=== PATIENT | male | born 1975 ===

== ENCOUNTER 2017-11-29 12:26 | Emergency (ER) | payer MEDICAID ==
[2017-11-29 12:26] VITALS: BMI 25.1
[2017-11-29 12:46] VITALS: O2SAT 98
--- NOTE | 2017-11-29 14:02 | C.PDOC ---
History Of Present Illness 42 year old male presents to the ED complaining of right lower leg swelling, increased when compared to left. Symptoms have been on and off for the past 6 months. Minimal in AM, worse in evenings after walking around all day. Live @ home with his Mom. Sleeps horizontally in a bed. No prior history of DVT or prior evaluations for this complaint. No chest pain or shortness of breath. Time Seen by Provider: 11/29/17 13:14 Chief Complaint (Nursing): Lower Extremity Problem/Injury History Per: Patient History/Exam Limitations: no limitations Onset/Duration Of Symptoms: Intermittent Episodes (for 6 months) Current Symptoms Are (Timing): Still Present Past Medical History Reviewed: Historical Data, Nursing Documentation, Vital Signs Vital Signs: Last Vital Signs Temp 98.8 F 11/29/17 12:45 Pulse 78 11/29/17 12:45 Resp 18 11/29/17 12:45 BP 120/79 11/29/17 12:45 Pulse Ox 98 11/29/17 14:06 - Medical History PMH: Anxiety, Hiatal Hernia (left inguinal hernia 6 mos ago) Denies: Chronic Kidney Disease Surgical History: Hernia Repair Family History: States: Unknown Family Hx - Social History Hx Alcohol Use: No Hx Substance Use: No - Immunization History Hx Tetanus Toxoid Vaccination: Yes Hx Influenza Vaccination: Yes Hx Pneumococcal Vaccination: No Review Of Systems Cardiovascular: Negative for: Chest Pain Respiratory: Negative for: Shortness of Breath Musculoskeletal: Positive for: Other (right lower leg swelling) Physical Exam - Physical Exam Appears: Non-toxic, No Acute Distress Skin: Normal Color, Warm, Dry Head: Atraumatic, Normacephalic Eye(s): bilateral: Normal Inspection, PERRL, EOMI Neck: Normal ROM, Supple Chest: Symmetrical Cardiovascular: Rhythm Regular, No Murmur Respiratory: Normal Breath Sounds, No Accessory Muscle Use Extremity: Normal ROM, Calf Tenderness (to the right), Swelling (Right lower extremity with increased size, tenderness, and edema compared to left) Neurological/Psych: Oriented x3, Normal Speech ED Course And Treatment O2 Sat by Pulse Oximetry: 98 (RA) Pulse Ox Interpretation: Normal Medical Decision Making Medical Decision Making: Impression: 42 y/o with lower leg swelling, right > left Time: 13:21 Plan: * Motrin 600 mg PO * Venous Duplex Scan of bilateral lower extremity NEG for DVT's b/l * * suspect venous insuffiency vs adverse effect from some psych meds * Teds Stockings and elevation educated. * NO susp of DVT/PE/CHF Disposition Doctor Will See Patient In The: Office Counseled Patient/Family Regarding: Studies Performed, Diagnosis - Disposition Disposition: HOME/ ROUTINE Disposition Time: 15:55 Condition: GOOD Forms: [facility] (Yi) - Clinical Impression Clinical Impression: Lower extremity edema - Scribe Statement The provider has reviewed the documentation as recorded by the Joanna Pelletier Provider Attestation: All medical record entries made by the Joanna were at my direction and personally dictated by me. I have reviewed the chart and agree that the record accurately reflects my personal performance of the history, physical exam, medical decision making, and the department course for this patient. I have also personally directed, reviewed, and agree with the discharge instructions and disposition.
[2017-11-29 16:15] VITALS: BP 116/70; PULSE 79; RESP 16; TEMP 98.1
--- NOTE | 2017-11-30 09:20 | VASCLAB ---
PROCEDURE: Lower Extremity Venous Duplex Exam. HISTORY: R lower leg swelling, no trauma, ? DVT PRIORS: None. TECHNIQUE: Bilateral common femoral, femoral, popliteal and posterior tibial, peroneal and great saphenous veins were evaluated. Flow was assessed with color Doppler, compressibility, assessment of phasic flow and augmentation response. Report prepared by Anthony Kendall, ZAC, RVT FINDINGS: RIGHT: 1. Common Femoral Vein: 1.1. Compressibility - Fully compressible: Thrombus - None : Flow - Phasic: Augmentation -Normal: Reflux - None. 2. Femoral Vein: 2.1. Compressibility - Fully compressible: Thrombus - None : Flow - Phasic: Augmentation -Normal: Reflux - Severe. 3. Popliteal Vein: 3.1. Compressibility - Fully compressible: Thrombus - None : Flow - Phasic: Augmentation -Normal: Reflux - None. 4. Posterior Tibial Vein: 4.1. Compressibility - Fully compressible: Thrombus - None: Flow - Phasic: Augmentation -Normal: Reflux - None. 5. Peroneal Vein: 5.1. Compressibility - Fully compressible: Thrombus - None: Flow - Phasic: Augmentation -Normal: Reflux - None. 6. Great Saphenous Vein: 6.1. Compressibility - Fully compressible: Thrombus - None: Flow - Phasic: Augmentation - Normal: Reflux - None. LEFT: 1. Common Femoral Vein: 1.1. Compressibility - Fully compressible: Thrombus - None: Flow - Phasic: Augmentation -Normal: Reflux - None. 2. Femoral Vein: 2.1. Compressibility - Fully compressible: Thrombus - None: Flow - Phasic: Augmentation -Normal: Reflux - None. 3. Popliteal Vein: 3.1. Compressibility - Fully compressible: Thrombus - None : Flow - Phasic: Augmentation -Normal: Reflux - None. 4. Posterior Tibial Vein: 4.1. Compressibility - Fully compressible: Thrombus - None: Flow - Phasic: Augmentation -Normal: Reflux - None. 5. Peroneal Vein: 5.1. Compressibility - Fully compressible: Thrombus - None: Flow - Phasic: Augmentation -Normal: Reflux - None. 6. Great Saphenous Vein: 6.1. Compressibility - Fully compressible: Thrombus - None: Flow - Phasic: Augmentation - Normal: Reflux - None. OTHER FINDINGS: Right: None significant. Left: None significant. IMPRESSION: Right: No evidence of deep or superficial vein thrombosis of the right lower extremity. 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 Left: No evidence of deep or superficial vein thrombosis of the left lower extremity. Normal valve function noted of the left side.
== END 2017-11-29 16:13 | disposition home or self-care (01) ==
LOC: C.ER 12:26
DX: R60.0 Localized edema (principal)